=== PATIENT | female | born 1975 | race Caucasian/White ===

== ENCOUNTER 2018-07-17 06:58 | Day surgery (SDC) | payer BC ==
[2018-07-16 12:21] LABS: BASOPHILS % (AUTO) 0.5 % (0.0-5.0); EOSINOPHILS % (AUTO) 0.4 % (0.0-8.0); HEMATOCRIT 40.1 % (36-48); LYMPHOCYTES % (AUTO) 18.2 % (21.0-51.0); MEAN CORPUSCULAR HEMOGLOBIN 31.6 pg (27.0-33.0); MONOCYTES % (AUTO) 5.5 % (3.0-13.0); NEUTROPHILS % (AUTO) 75.4 % (40.0-77.0); PLATELET COUNT (AUTO) 269 K/uL (130-400); RED BLOOD CELL COUNT(AUTO) 4.31 MIL/uL (4.00-5.50); RED CELL DISTRIBUTION WIDTH 12.8 % (11.0-15.5); WHITE BLOOD COUNT (AUTO) 11.9 K/uL (4.8-10.8)
[2018-07-16 12:33] VITALS: BP 119/78
[2018-07-16] MEDS: CEFAZOLIN SODIUM 1 GM VIAL IVP SCH (13:15)
[2018-07-17] VITALS (13 sets, daily range): BP systolic 91–125; BP diastolic 58–87
[~2018-07-17] VITALS: Ht 170.2 cm; Wt 79.3 kg
[~2018-07-17 06:58] MED LIST: CALDOLOR 800MG+NS 250ML 250 ML IV SCH; ESOM10SU PO; SPIR100T5 PO; metamucil
[2018-07-17] MEDS ORDERED: ONDANSETRON HCL 4 MG/2 ML VIAL ONE (07:02)
[2018-07-17] MEDS ORDERED: DEXAMETHASONE SOD PHOSPHATE 10MG/ML 1ML VIAL ONE (07:02)
[2018-07-17] MEDS ORDERED: MIDAZOLAM HCL 1 MG/ML 2ML VIAL ONE (07:02)
[2018-07-17] MEDS ORDERED: LIDOCAINE PF 2% 5ML ABBOJECT ONE (07:02)
[2018-07-17] MEDS ORDERED: NEOSTIGMINE 5MG/5ML SYR IV ONE (07:02)
[2018-07-17] MEDS ORDERED: SUCCINYLCHOLINE 200MG/10ML SYR ONE (07:02)
[2018-07-17] MEDS ORDERED: PROPOFOL 10 MG/ML 20ML VIAL IV ONE ×2 (07:02→08:40)
[2018-07-17] MEDS ORDERED: FENTANYL CITRATE PF 50 MCG/1 ML 2ML VIAL ONE ×2 (07:03→08:49)
[2018-07-17] MEDS ORDERED: ROCURONIUM 10MG/1ML SYR 10 MG/ML ML ONE (07:03)
[2018-07-17] MEDS ORDERED: GLYCOPYRROLATE 1 MG/5 ML SYRINGE ONE (07:07)
[2018-07-17] MEDS ORDERED: LACTATED RINGERS 1000ML 1,000 ML IV ONE (07:27)
[2018-07-17] MEDS: CEFAZOLIN SODIUM 1 GM VIAL IVP SCH (08:40)
[2018-07-17] MEDS ORDERED: FAMOTIDINE/PF 20 MG/2 ML VIAL IV ONE (09:27)
== END 2018-07-17 10:58 | disposition home or self-care (01) ==
LOC: DAH 06:58
PROVIDERS: ATTEND Obstetrics & Gynecology
DX: N84.0 Polyp of corpus uteri (principal); I10 Essential (primary) hypertension; E11.9 Type 2 diabetes mellitus without complications; Z79.899 Other long term (current) drug therapy; Z98.890 Other specified postprocedural states
CPT/HCPCS: 36415; 58563; 84702; 85025; 86850; 86900; 86901; 88305; A4351; A4355; A4510; A4600; A4930; J0330; J0690; J1100; J1741; J2001; J2250; J2405; J2704 ×2; J2710; J3010 ×2; J3490 ×2; J7030 ×2; J7120

== ENCOUNTER 2022-06-05 05:54 | Day surgery (SDC) | payer BC ==
[2022-06-03 15:55] LABS: BASOPHILS % (AUTO) 0.6 % (0.0-5.0); EOSINOPHILS % (AUTO) 0.9 % (0.0-8.0); HEMATOCRIT 42.6 % (36-48); LYMPHOCYTES % (AUTO) 25.7 % (21.0-51.0); MEAN CORPUSCULAR HGB CONC 33.8 g/dL (32.0-36.0); MEAN CORPUSCULAR VOLUME 91.8 fL (79-99); MONOCYTES % (AUTO) 8.9 % (3.0-13.0); NEUTROPHILS % (AUTO) 63.4 % (40.0-77.0); PLATELET COUNT (AUTO) 308 K/uL (130-400); RED BLOOD CELL COUNT(AUTO) 4.64 MIL/uL (4.00-5.50); RED CELL DISTRIBUTION WIDTH 12.9 % (11.0-15.5); WHITE BLOOD COUNT (AUTO) 9.7 K/uL (4.8-10.8)
[2022-06-04 10:27] VITALS: BP 140/87
[~2022-06-05] VITALS: Ht 170.2 cm; Wt 77.7 kg
[2022-06-05] VITALS (14 sets, daily range): BP systolic 109–153; BP diastolic 71–98
[~2022-06-05 05:54] MED LIST changes: +CEFAZOLIN SODIUM 1 GM VIAL IVP SCH; -SPIR100T5 PO; +SPIR50TA5 PO; +UQORA PO; -metamucil; +probiotic PO
[2022-06-05] MEDS ORDERED: ROCURONIUM 10MG/1ML SYR 10 MG/ML ML ONE (06:58)
[2022-06-05] MEDS ORDERED: MIDAZOLAM HCL 1 MG/ML 2ML VIAL ONE (06:58)
[2022-06-05] MEDS ORDERED: GLYCOPYRROLATE 1 MG/5 ML SYRINGE ONE (06:58)
[2022-06-05] MEDS ORDERED: PROPOFOL 10 MG/ML 20ML VIAL IV ONE (06:58)
[2022-06-05] MEDS ORDERED: FENTANYL CITRATE PF 50 MCG/1 ML 2ML VIAL ONE (06:59)
[2022-06-05] MEDS ORDERED: STRONG IODINE SOLN 14ML BOTTLE ONE (07:05)
[2022-06-05] MEDS ORDERED: LACTATED RINGERS 1000ML 1,000 ML IV ONE (07:12)
[2022-06-05] MEDS ORDERED: CEFAZOLIN SODIUM 2 GM VIAL IV ONE (07:32)
[2022-06-05] MEDS ORDERED: ONDANSETRON 4MG INJ ONE (07:44)
[2022-06-05] MEDS ORDERED: NEOSTIGMINE 5MG/5ML SYR IV ONE (08:03)
== END 2022-06-05 09:45 | disposition home or self-care (01) ==
LOC: DAH 05:54
PROVIDERS: ATTEND Obstetrics & Gynecology
DX: L29.2 Pruritus vulvae (principal); N89.8 Other specified noninflammatory disorders of vagina; K21.9 Gastro-esophageal reflux disease without esophagitis; F17.200 Nicotine dependence, unspecified, uncomplicated; Z80.3 Family history of malignant neoplasm of breast; Z82.49 Family history of ischemic heart disease and other diseases of the circulatory system; Z83.438 Family history of other disorder of lipoprotein metabolism and other lipidemia; Z72.89 Other problems related to lifestyle; Z98.890 Other specified postprocedural states
CPT/HCPCS: 85025; 86850; 86900; 86901; 87426; 36415; 57135; 81025; A6260; A4351; J0690 ×2; J7120; J3010; J3490; J2710; J2250; J2704; J2405; A4215; A4223; A4222; A4221; A4663; J1741

== ENCOUNTER → 2024-05-13 | Outpatient (CLI) | payer OTHER ==
[~2024-05-13] MED LIST changes: -CALDOLOR 800MG+NS 250ML 250 ML IV SCH; -CEFAZOLIN SODIUM 1 GM VIAL IVP SCH
== END | disposition home or self-care (01) ==
LOC: RAH 08:09
PROVIDERS: ATTEND Family Medicine
DX: Z13.6 Encounter for screening for cardiovascular disorders (principal)
CPT/HCPCS: 75571